=== PATIENT | male | born 1980 | race Caucasian/White ===

== ENCOUNTER 2023-12-05 15:01 | Emergency (ER) | payer MEDICAID ==
[~2023-12-05] VITALS: Ht 175.3 cm; Wt 81.6 kg
[2023-12-05 15:11] VITALS: BP_SYST 138; PULSE 114; RESP 20; TEMP 98.3; O2SAT 98
[2023-12-05] MEDS: MORPHINE 4 MG INJ. 4 MG/ML VIAL IM ONE (15:48)
[2023-12-05 16:31] LABS: BASOPHILS # (AUTO) 0.1 K/uL (0.0-0.2); BASOPHILS % (AUTO) 0.8 % (0.0-2.0); EOSINOPHILS # (AUTO) 0.1 K/uL (0.0-0.4); EOSINOPHILS % (AUTO) 1.6 % (0.0-4.0); HEMATOCRIT 43.1 % (36-54); LYMPHOCYTES # (AUTO) 2.1 K/uL (1.0-5.5); LYMPHOCYTES % (AUTO) 24.2 % (20.5-51.5); MEAN CORPUSCULAR HEMOGLOBIN 31 pg (27-31); MEAN CORPUSCULAR HGB CONC 35 % (32-36); MEAN CORPUSCULAR VOLUME 89 fL (79.0-98.0); MONOCYTES # (AUTO) 0.6 K/uL (0.0-1.0); MONOCYTES % (AUTO) 6.4 % (1.7-9.3); NEUTROPHILS # (AUTO) 5.9 K/uL (1.8-7.7); PLATELET COUNT (AUTO) 303 K/uL (130-430); RED BLOOD CELL COUNT(AUTO) 4.83 MIL/uL (4.2-6.2); RED CELL DISTRIBUTION WIDTH 12.7 % (9.0-15.0); WHITE BLOOD COUNT (AUTO) 8.9 K/uL (4.8-10.8)
[2023-12-05 16:48] LABS: ALANINE AMINOTRANSFERASE 18 U/L (12-78); ALBUMIN 4.1 g/dL (3.4-4.8); ANION GAP 10 (5-15); ASPARTATE AMINOTRANSFERASE 13 U/L (10-37); CALCIUM 8.8 mg/dL (8.4-11.0); CARBON DIOXIDE 26 mmol/L (23-29); CHLORIDE 105 mmol/L (98-107); CREATININE 1.05 mg/dL (0.55-1.30); GFR AFRICAN AMERICAN 100 mL/min (>90); GLUCOSE 107 mg/dL (74-106); POTASSIUM 3.8 mmol/L (3.5-5.1); SODIUM SERUM 141 mmol/L (136-145); TOTAL BILIRUBIN 0.3 mg/dL (0.0-1.0); TOTAL PROTEIN, SERUM 7.3 g/dL (6.4-8.3); UREA NITROGEN, BLOOD 10 mg/dL (8-21)
[2023-12-05 16:50] LABS: GFR NON AFRICAN-AMERICAN 83 mL/min (>90)
[2023-12-05 16:51] LABS: BILIRUBIN,DIRECT 0.1 mg/dL (0.0-0.3); CREATINE KINASE, TOTAL 82 U/L (39-308)
[2023-12-05] MEDS ORDERED: HYDR-3927 PO (17:02)
[2023-12-05] MEDS ORDERED: IBUP-1969 PO (17:02)
[2023-12-05 17:22] LABS: PROTHROMBIN TIME 10.4 SECS (9.5-12.5)
[2023-12-05 17:40] VITALS: BP_SYST 138; PULSE 114; RESP 20; TEMP 98.3; O2SAT 98
== END 2023-12-05 17:40 | disposition home or self-care (01) ==
LOC: SED 15:01
DX: R07.89 Other chest pain (principal); R00.0 Tachycardia, unspecified
CPT/HCPCS: 99285; 71045; 80076; 80048; 82550; 83880; 85025; 85610; 85730; 84484; 36415; 93005; 96372; J2270

== ENCOUNTER 2024-01-23 11:39 | Emergency (ER) | payer MEDICAID ==
[~2024-01-23] VITALS: Ht 175.3 cm; Wt 74.8 kg
[~2024-01-23 11:39] MED LIST: HYDR-3927 PO; IBUP-1969 PO
[2024-01-23 12:00] VITALS: BP_SYST 159; PULSE 118; RESP 20; TEMP 98.8; O2SAT 94
[2024-01-23] MEDS ORDERED: SERT100T PO (12:25)
[2024-01-23] MEDS ORDERED: TRAZ50TA54 PO (12:25)
[2024-01-23] MEDS ORDERED: DIVA-74 PO (12:25)
[2024-01-23] MEDS ORDERED: METH-800 PO (12:25)
[2024-01-23 14:12] LABS: BASOPHILS # (AUTO) 0.1 K/uL (0.0-0.2); BASOPHILS % (AUTO) 0.7 % (0.0-2.0); EOSINOPHILS % (AUTO) 0.3 % (0.0-4.0); LYMPHOCYTES # (AUTO) 1.6 K/uL (1.0-5.5); LYMPHOCYTES % (AUTO) 12.4 % (20.5-51.5); MEAN CORPUSCULAR HEMOGLOBIN 31 pg (27-31); MEAN CORPUSCULAR HGB CONC 34 % (32-36); MEAN CORPUSCULAR VOLUME 91 fL (79.0-98.0); MONOCYTES # (AUTO) 0.6 K/uL (0.0-1.0); MONOCYTES % (AUTO) 4.4 % (1.7-9.3); NEUTROPHILS # (AUTO) 10.5 K/uL (1.8-7.7); NEUTROPHILS % (AUTO) 82.2 % (40.0-70.0); PLATELET COUNT (AUTO) 328 K/uL (130-430); RED BLOOD CELL COUNT(AUTO) 4.84 MIL/uL (4.2-6.2); RED CELL DISTRIBUTION WIDTH 13.7 % (9.0-15.0); WHITE BLOOD COUNT (AUTO) 12.8 K/uL (4.8-10.8)
[2024-01-23 14:24] LABS: ANION GAP 10 (5-15); CALCIUM 9.5 mg/dL (8.4-11.0); CARBON DIOXIDE 26 mmol/L (23-29); CHLORIDE 106 mmol/L (98-107); CREATININE 0.93 mg/dL (0.55-1.30); GFR AFRICAN AMERICAN 115 mL/min (>90); GFR NON AFRICAN-AMERICAN 95 mL/min (>90); GLUCOSE 97 mg/dL (74-106); POTASSIUM 3.9 mmol/L (3.5-5.1); SODIUM SERUM 142 mmol/L (136-145); UREA NITROGEN, BLOOD 9 mg/dL (8-21)
[2024-01-23] MEDS: NACL 0.9% 1,000 ML IV ONE (15:57)
[2024-01-23] MEDS: KETOROLAC TROMETHAMINE 30 MG VIAL IVP ONE (15:58)
[2024-01-23] MEDS: ONDANSETRON HCL 4 MG/2 ML VIAL IVP ONE (15:59)
[2024-01-23] MEDS ORDERED: TRAM50TA2 PO (17:13)
== END 2024-01-23 17:45 | disposition home or self-care (01) ==
LOC: SED 11:39
DX: R07.89 Other chest pain (principal); R06.02 Shortness of breath; R51.9 Headache, unspecified; R00.0 Tachycardia, unspecified; R11.0 Nausea; Z79.899 Other long term (current) drug therapy; Z79.2 Long term (current) use of antibiotics
CPT/HCPCS: 99285; 96374; 71250; 71046; 96361; 96375; 80048; 83880; 85025; 85379; 84484; 36415; 93005; 71100; J1885; J2405; J7030